=== PATIENT | female | born 1970 | race Caucasian/White ===

== ENCOUNTER 2016-11-09 18:12 | Emergency (ER) | payer BC ==
[2016-11-09 18:20] VITALS: BP 108/69; PULSE 95; RESP 18; TEMP 98.1
--- NOTE | 2016-11-09 18:49 | ED ---
General Adult HPI - General Chief complaint: Skin/Abscess/Foreign Body Stated complaint: Check wound staple fell in wound Time Seen by Provider: 11/09/16 18:25 Source: patient, RN notes reviewed Mode of arrival: ambulatory Limitations: no limitations - History of Present Illness Initial comments: Patient 46-year-old female who presents emergency room today with a chief complaint of wound recheck. She does admit that she was seen at [facility] recently had beth placed in the right leg. She states that she noticed earlier today the beth came loose and believes that it broke in half an part of the staple is stuck in her leg. States the other part came out. She states she did not want to go back to [facility] that she came to this ER instead. Denies any other complaints. Patient denies any recent fever, chills, shortness of breath, chest pain, back pain, abdominal pain , nausea or vomiting, numbness or tingling, dysuria or hematuria, constipation or diarrhea, headaches or visual changes, or any other complaints. - Related Data Previous Rx's Medication Instructions Recorded Hydrocodone/Acetaminophen [[place] 2 each PO Q6HR PRN #20 tab 05/06/15 5-325] SILVER sulfADIAZINE Cream 1 applic TOPICAL BID #80 cream..g. 05/06/15 [Silvadene Cream] Cephalexin [Keflex] 500 mg PO Q12HR 7 Days 11/09/16 Allergies Allergy/AdvReac Type Severity Reaction Status Date / Time No Known Allergies Allergy Verified 11/09/16 18:20 Review of Systems ROS Statement: Those systems with pertinent positive or pertinent negative responses have been documented in the HPI. ROS Other: All systems not noted in ROS Statement are negative. Past Medical History Past Medical History: No Reported History History of Any Multi-Drug Resistant Organisms: None Reported Past Surgical History: Adenoidectomy, Section, Tonsillectomy Past Psychological History: No Psychological Hx Reported Smoking Status: Current every day smoker Past Alcohol Use History: None Reported Past Drug Use History: None Reported General Exam - General Exam Comments Initial Comments: General: The patient is awake and alert, in no distress, and does not appear acutely ill. Neck: The neck is supple, there is no tenderness or JVD. Cardiovascular: There is a regular rate and rhythm. No murmur, rub or gallop is appreciated. Respiratory: Lungs are clear to auscultation, respirations are non-labored, breath sounds are equal. No wheezes, stridor, rales, or rhonchi. Musculoskeletal/skin: Patient has laceration running on an angle to the right lower leg. There currently is 3 beth intact. For staple is not visualized. Patient shows full range motion. Sensation is intact. Pulses equal bilaterally 2+. Strength is 5/5. Neurological: A&O x 3. CN II-XII intact, There are no obvious motor or sensory deficits. Coordination appears grossly intact. Speech is normal.. Psychiatric: Normal mood and affect. Limitations: no limitations Course Vital Signs 11/09/16 18:18 Temperature 98.1 F Pulse Rate 95 Respiratory 18 Rate Blood Pressure 108/69 O2 Sat by Pulse 100 Oximetry Medical Decision Making - Medical Decision Making Patient's x-ray reviewed and shows no evidence of 4th staple. Only 3 stapled are visualized on X-ray. A steri-strip has been placed over the area and patient also given a antibiotic to cover for infection as there is some mild local redness. Disposition Clinical Impression: Encounter for re-check of laceration wound Disposition: HOME SELF-CARE Condition: Good Additional Instructions: Please have beth removed in the next 5 days. Please allow Steri-Strips to fall off on its own. Please watch for signs of infection which may include increased pain, redness, fever or chills. Please use antibiotic as discussed. Please return to emergency room for any other concerns. Prescriptions: Cephalexin [Keflex] 500 mg PO Q12HR 7 Days Referrals: Marcial Ty MD [Primary Care Provider] - 1-2 days Time of Disposition: 19:02
--- NOTE | 2016-11-09 19:10 | XR ---
EXAMINATION TYPE: XR tibia fibula RT DATE OF EXAM: 11/09/2016 COMPARISON: NONE HISTORY: Possible foreign body TECHNIQUE: 2 views FINDINGS: There are 3 skin beth on the lateral aspect of the mid fibula. There is mild soft tissue swelling. I see no fracture nor dislocation. IMPRESSION: There are 3 skin beth the appear to be at the skin surface. No fracture.
== END 2016-11-09 19:37 | disposition home or self-care (01) ==
LOC: EC 18:12
DX: S81.811D Laceration without foreign body, right lower leg, subsequent encounter (principal); F17.200 Nicotine dependence, unspecified, uncomplicated
CPT/HCPCS: 99282